=== PATIENT | female | born 1995 | race Caucasian/White ===

== ENCOUNTER 2016-04-12 07:34 | Outpatient (CLI) | payer OTHER | END 2016-04-12 07:35 | disposition home or self-care (01) | DX: T83.32XA Displacement of intrauterine contraceptive device, initial encounter (principal); N85.4 Malposition of uterus ==

== ENCOUNTER 2017-01-11 16:07 | Outpatient (CLI) | payer OTHER | END 2017-01-11 16:08 | disposition home or self-care (01) | LOC: LAB.R 16:07 | PROVIDERS: ATTEND Registered Nurse | DX: Z11.3 Encounter for screening for infections with a predominantly sexual mode of transmission (principal) | CPT/HCPCS: 87491; 87591 ==

== ENCOUNTER 2018-01-24 13:33 | Outpatient (CLI) | payer OTHER ==
[2018-01-26 13:46] LABS: HSV 1 IGG TYPE SPECIFIC AB <0.90 index; HSV 2 IGG TYPE SPECIFIC AB <0.90 index
== END 2018-01-24 13:34 | disposition home or self-care (01) ==
LOC: LAB.F 13:33
PROVIDERS: ATTEND Registered Nurse
DX: N76.6 Ulceration of vulva (principal)
CPT/HCPCS: 36415; 81599; 86592; 86695; 86696